=== PATIENT | female | born 1980 | race Caucasian/White ===

== ENCOUNTER 2018-10-05 08:58 | Emergency (ER) | payer OTHER ==
[~2018-10-05] VITALS: Ht 180.3 cm; Wt 70.3 kg
[2018-10-05 09:16] VITALS: BP 148/98
[2018-10-05] MEDS ORDERED: LORazepam 2 MG/ML VIAL IV ONE (09:30)
[2018-10-05] MEDS ORDERED: PANTOPRAZOLE IV 40 MG VIAL. IVP ONE (09:30)
[2018-10-05] MEDS ORDERED: KETOROLAC 30 MG/ML VIAL. IV ONE (09:45)
[2018-10-05 09:46] LABS: BASO % 1 % (0-3); EOS # 0.1 x10^3/uL (0.0-0.7); EOS % 2 % (0-3); HEMATOCRIT 43.2 % (36.0-47.0); HEMOGLOBIN 14.8 g/dL (12.0-15.5); LYMPH # 1.6 x10^3/uL (1.0-4.8); LYMPH % 38 % (24-48); MEAN CORPUSCULAR HEMOGLOBIN 32 pg (25-35); MEAN CORPUSCULAR HGB CONC 34 g/dL (31-37); MEAN CORPUSCULAR VOLUME 95 fL (79-100); MONO # 0.3 x10^3/uL (0.0-1.1); MONO % 7 % (0-9); NEUT # 2.2 x10^3uL (1.8-7.7); NEUT % 53 % (31-73); PLATELET COUNT 188 x10^3/uL (140-400); RED BLOOD COUNT 4.55 x10^6/uL (3.50-5.40); RED CELL DISTRIBUTION WIDTH 12.6 % (11.5-14.5); WHITE BLOOD COUNT 4.2 x10^3/uL (4.0-11.0)
[2018-10-05 09:56] LABS: ALBUMIN 3.9 g/dL (3.4-5.0); ALBUMIN/GLOBULIN RATIO 1.1 (1.0-1.7); CALCIUM 8.3 mg/dL (8.5-10.1); GFR 62.1; MAGNESIUM 1.9 mg/dL (1.8-2.4); POTASSIUM 3.8 mmol/L (3.5-5.1); TOTAL BILIRUBIN 0.6 mg/dL (0.2-1.0); TOTAL PROTEIN 7.5 g/dL (6.4-8.2)
--- NOTE | 2018-10-05 10:19 | RAD ---
EXAM: PA and Lateral Views of the Chest DATE: 10/05/2018 10:08 AM INDICATION: Chest pain x 1 day, no hx of heart or lung disease, lmp 1 week ago COMPARISON: No Prior FINDINGS: The heart is not enlarged. Mediastinal and hilar contours are normal. No focal parenchymal airspace opacity. No pleural effusion or pneumothorax. IMPRESSION: 1. No radiographic evidence for acute cardiopulmonary process. Electronically signed by: Minesh Mercedes MD (10/05/2018 10:16 AM) [facility]
[2018-10-05] MEDS ORDERED: IV NORMAL SALINE 1,000ML 1,000 ML IV ONE (10:30)
[2018-10-05] MEDS ORDERED: IOHEXOL 300 MG/ML 75 ML VIAL. IV ONE (11:30)
--- NOTE | 2018-10-05 12:03 | RAD ---
CLINICAL HISTORY: Short of breath w/ chest pain x 1 day COMPARISON: None. TECHNIQUE: CT of the chest following the administration of intravenous contrast during the pulmonary arterial phase. Axial, coronal and sagittal reformatted images were generated including MIP images. ---PQRS compliance statement - One or more of the following individualized dose reduction techniques were utilized for this study: 1. Automated exposure control 2. Adjustment of the mA and/or kV according to patient size 3. Use of iterative reconstruction technique--- FINDINGS: CHEST: Diagnostic quality: Suboptimal. Pulmonary emboli: No pulmonary emboli to the level of the segmental branches. More peripheral vessels are not well assessed. Right heart strain: None Pulmonary arteries: Normal in caliber. Heart is not enlarged. No pericardial effusion. No pleural effusion or pneumothorax. No mediastinal or hilar lymphadenopathy by size criteria. No axillary lymphadenopathy. Mild dependent opacities bilaterally likely atelectasis. No lobar consolidation. Visualized Upper abdomen: Unremarkable Bones: Unremarkable IMPRESSION: 1. No evidence for acute pulmonary embolus 2. Mild dependent opacities in the bilateral lower lobes likely atelectasis. Electronically signed by: Minesh Mercedes MD (10/05/2018 11:59 AM) [facility]
--- NOTE | 2018-10-05 12:10 | PHYS DOC ---
Past History Past Medical History: No Pertinent History Smoking: Quit Less Than 1 Year Alcohol Use: None Drug Use: None Adult General Chief Complaint Chief Complaint: CHEST PAIN HPI HPI Patient is a 38 year old female who presents with complaining of chest pain. Patient states she has had episodes of left chest wall skin discomfort feeling for the last 3 days and episodes of needling . Patient complaining of intermittent episodes of left chest sharp pain since this morning that lasts for about 2 seconds and repeated infrequently. Patient complaining of mild shortness of breath and lightheadedness without palpitation, fever and chills, cough, history of chest pain. Patient complaining of a small area of rash in left side of chest without pain or itching. Review of Systems Review of Systems Constitutional: Denies fever or chills [] Eyes: Denies change in visual acuity, redness, or eye pain [] HENT: Denies nasal congestion or sore throat [] Respiratory: Denies cough, reports shortness of breath [] Cardiovascular: No additional information not addressed in HPI [] GI: Denies abdominal pain, nausea, vomiting, bloody stools or diarrhea [] : Denies dysuria or hematuria [] Musculoskeletal: Denies back pain or joint pain [] Integument: Denies rash or skin lesions [] Neurologic: Denies headache, focal weakness or sensory changes [] Endocrine: Denies polyuria or polydipsia [] All other systems were reviewed and found to be within normal limits, except as documented in this note. Current Medications Current Medications Current Medications Medications (Trade) Dose Ordered Sig/Eric Start Time Stop Time Status Last Admin Dose Admin Iohexol (Omnipaque 300 Mg/ml) 75 ml 1X ONCE 10/05/18 11:30 10/05/18 11:31 DC 10/05/18 11:31 75 ML Ketorolac Tromethamine (Toradol 30mg Vial) 30 mg 1X ONCE 10/05/18 09:45 10/05/18 10:14 DC 10/05/18 09:57 30 MG Lorazepam (Ativan) 2 mg 1X ONCE 10/05/18 09:30 10/05/18 10:17 DC 10/05/18 09:57 2 MG Pantoprazole Sodium (Protonix Vial) 40 mg 1X ONCE 10/05/18 09:30 10/05/18 10:17 DC 10/05/18 09:56 40 MG Sodium Chloride 1,000 ml @ 1,000 mls/hr 1X ONCE 10/05/18 10:30 10/05/18 11:29 DC 10/05/18 10:38 1,000 MLS/HR Allergies Allergies Allergies Coded Allergies Type Severity Reaction Last Updated Verified No Known Drug Allergies 10/05/18 No Physical Exam Physical Exam Constitutional: Well developed, well nourished, mild distress, non-toxic appearance. [] HENT: Normocephalic, atraumatic, oropharynx moist, no oral exudates, nose normal. [] Eyes: PERRLA, EOMI, conjunctiva normal, no discharge. [] Neck: Normal range of motion, no tenderness, supple, no stridor. [] Cardiovascular:Heart rate regular rhythm, no murmur [] Lungs & Thorax: Bilateral breath sounds clear to auscultation [] Abdomen: Bowel sounds normal, soft, no tenderness, no masses, no pulsatile masses. [] Skin: Warm, dry, no erythema, small area of 2 x 2 mm rash left chest wall without blister or tenderness, no signs of shingles Back: No tenderness, no CVA tenderness. [] Extremities: No tenderness, no cyanosis, no clubbing, ROM intact, no edema. [] Neurologic: Alert and oriented X 3, normal motor function, normal sensory function, no focal deficits noted. [] Psychologic: Affect normal, judgement normal, mood normal. [] Current Patient Data Vital Signs Vital Signs Date Time Temp Pulse Resp B/P (MAP) Pulse Ox O2 Delivery O2 Flow Rate FiO2 10/05/18 10:33 100 Room Air 10/05/18 09:16 70 20 148/98 (115) 10/05/18 09:08 98.0 Lab Results Laboratory Tests Test 10/05/18 09:15 White Blood Count 4.2 x10^3/uL (4.0-11.0) Red Blood Count 4.55 x10^6/uL (3.50-5.40) Hemoglobin 14.8 g/dL (12.0-15.5) Hematocrit 43.2 % (36.0-47.0) Mean Corpuscular Volume 95 fL (79-100) Mean Corpuscular Hemoglobin 32 pg (25-35) Mean Corpuscular Hemoglobin Concent 34 g/dL (31-37) Red Cell Distribution Width 12.6 % (11.5-14.5) Platelet Count 188 x10^3/uL (140-400) Neutrophils (%) (Auto) 53 % (31-73) Lymphocytes (%) (Auto) 38 % (24-48) Monocytes (%) (Auto) 7 % (0-9) Eosinophils (%) (Auto) 2 % (0-3) Basophils (%) (Auto) 1 % (0-3) Neutrophils # (Auto) 2.2 x10^3uL (1.8-7.7) Lymphocytes # (Auto) 1.6 x10^3/uL (1.0-4.8) Monocytes # (Auto) 0.3 x10^3/uL (0.0-1.1) Eosinophils # (Auto) 0.1 x10^3/uL (0.0-0.7) Basophils # (Auto) 0.0 x10^3/uL (0.0-0.2) D-Dimer (Rita) 1.63 mg/L (0.00-0.50) H Sodium Level 138 mmol/L (136-145) Potassium Level 3.8 mmol/L (3.5-5.1) Chloride Level 103 mmol/L (98-107) Carbon Dioxide Level 27 mmol/L (21-32) Anion Gap 8 (6-14) Blood Urea Nitrogen 11 mg/dL (7-20) Creatinine 1.0 mg/dL (0.6-1.0) Estimated GFR (Cockcroft-Gault) 62.1 BUN/Creatinine Ratio 11 (6-20) Glucose Level 98 mg/dL (70-99) Calcium Level 8.3 mg/dL (8.5-10.1) L Magnesium Level 1.9 mg/dL (1.8-2.4) Total Bilirubin 0.6 mg/dL (0.2-1.0) Aspartate Amino Transferase (AST) 17 U/L (15-37) Alanine Aminotransferase (ALT) 18 U/L (14-59) Alkaline Phosphatase 80 U/L (46-116) Creatine Kinase 89 U/L (26-192) Troponin I Quantitative < 0.017 ng/mL (0-0.055) Total Protein 7.5 g/dL (6.4-8.2) Albumin 3.9 g/dL (3.4-5.0) Albumin/Globulin Ratio 1.1 (1.0-1.7) Lipase 128 U/L (73-393) EKG EKG EKG Rated by me. EKG at 0906 showed normal sinus rhythm at rate of 69, poor R- wave progress in anteroseptal leads, multiple artifact, no acute ST and T-wave abnormalities. Radiology/Procedures Radiology/Procedures [address] [id number] IMAGING REPORT Signed PATIENT: JESSI LOPEZ ACCOUNT: [id number] : 1980 LOCATION: ER AGE: 38 SEX: F EXAM STATUS: PRE ER ORD. PHYSICIAN: LUCIANO FELIX MD REASON: chest pain PROCEDURE: CHEST PA & LATERAL EXAM: PA and Lateral Views of the Chest DATE: 10/05/2018 10:08 AM INDICATION: Chest pain x 1 day, no hx of heart or lung disease, lmp 1 week ago COMPARISON: No Prior FINDINGS: The heart is not enlarged. Mediastinal and hilar contours are normal. No focal parenchymal airspace opacity. No pleural effusion or pneumothorax. IMPRESSION: 1. No radiographic evidence for acute cardiopulmonary process. Electronically signed by: Minesh Mercedes MD (10/05/2018 10:16 AM) [facility] DICTATED AND SIGNED BY: MINESH MERCEDES MD DATE: 10/05/18 1010 CC: LUCIANO FELIX MD; TOMI CASAREZ DO ~ [address] [id number] IMAGING REPORT Signed PATIENT: JESSI LOPEZ ACCOUNT: [id number] : 1980 LOCATION: ER AGE: 38 SEX: F EXAM STATUS: PRE ER ORD. PHYSICIAN: LUCIANO FELIX MD REASON: chest pain and elevated d-dimer PROCEDURE: CT ANGIOGRAPHY CHEST CLINICAL HISTORY: Short of breath w/ chest pain x 1 day COMPARISON: None. TECHNIQUE: CT of the chest following the administration of intravenous contrast during the pulmonary arterial phase. Axial, coronal and sagittal reformatted images were generated including MIP images. ---PQRS compliance statement - One or more of the following individualized dose reduction techniques were utilized for this study: 1. Automated exposure control 2. Adjustment of the mA and/or kV according to patient size 3. Use of iterative reconstruction technique--- FINDINGS: CHEST: Diagnostic quality: Suboptimal. Pulmonary emboli: No pulmonary emboli to the level of the segmental branches. More peripheral vessels are not well assessed. Right heart strain: None Pulmonary arteries: Normal in caliber. Heart is not enlarged. No pericardial effusion. No pleural effusion or pneumothorax. No mediastinal or hilar lymphadenopathy by size criteria. No axillary lymphadenopathy. Mild dependent opacities bilaterally likely atelectasis. No lobar consolidation. Visualized Upper abdomen: Unremarkable Bones: Unremarkable IMPRESSION: 1. No evidence for acute pulmonary embolus 2. Mild dependent opacities in the bilateral lower lobes likely atelectasis. Electronically signed by: Minesh Mercedes MD (10/05/2018 11:59 AM) [facility] DICTATED AND SIGNED BY: MINESH MERCEDES MD DATE: 10/05/18 1143 CC: LUCIANO FELIX MD; TOMI CASAREZ DO ~ Course & Med Decision Making Course & Med Decision Making Pertinent Labs and Imaging studies reviewed. (See chart for details) Evaluation of patient in ER showed 38-year-old female patient with complaining of chest pain. Patient had unremarkable physical exam and labs and felt better after treatment in ER. Patient instructed to follow up with her primary care physician and return to ER if not getting better. Dragon Disclaimer Dragon Disclaimer This electronic medical record was generated, in whole or in part, using a voice recognition dictation system. Departure Departure: Impression: Primary Impression: Non-cardiac chest pain Disposition: HOME, SELF-CARE (at 1209) Condition: IMPROVED Referrals: TOMI CASAREZ DO (PCP) Patient Instructions: Chest Pain (Nonspecific), Musculoskeletal Pain Additional Instructions: Drink plenty of liquids Follow-up with your primary care physician in 3-5 days Return to ER if not getting better Take [id number] Tylenol or ibuprofen as needed for pain LUCIANO FELIX MD Oct 05, 2018 12:10
== END 2018-10-05 12:23 | disposition home or self-care (01) ==
LOC: ER 08:58
DX: R07.89 Other chest pain (principal); R42 Dizziness and giddiness; R21 Rash and other nonspecific skin eruption; Z87.891 Personal history of nicotine dependence
CPT/HCPCS: 36415; 71046; 71275; 80053; 82550; 83690; 83735; 84484; 85025; 85379; 93005; 96361; 96374; 96375; 99285; C9113; J1885; J2060; Q9967; J7030